=== PATIENT | male | born 1990 | race African-American/Black ===

== ENCOUNTER 2019-07-18 20:12 | Observation (INO) | payer MEDICAID, SELFPAY ==
[2019-07-18 20:15] VITALS: BP 176/116; PULSE 104; RESP 16; TEMP 37.4; O2SAT 96; BMI 23.3
--- NOTE | 2019-07-18 20:31 | ED.RN ---
Addendum entered by Candelario Knox 07/18/19 21:07: correction on phone number [phone] Original Note: brothers phone number [phone]
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
--- NOTE | 2019-07-18 20:37 | EKG12_ITS ---
Test Reason : DYSRHYTHMIA Blood Pressure : / mmHG Vent. Rate : 084 BPM Atrial Rate : 084 BPM P-R Int : 170 ms QRS Dur : 090 ms QT Int : 404 ms P-R-T Axes : 055 067 028 degrees QTc Int : 477 ms Normal sinus rhythm Nonspecific T wave abnormality Prolonged QT Abnormal ECG Confirmed by JAGDISH FORD, KAMRYN ([id number]), city editor SAM YANG ([id number]) on 07/23/2019 3:11:11 PM Referred By: MR Confirmed By:JOAN DUBON MD
[2019-07-18] MEDS: Ziprasidone IM 20 MG/ML VIAL IM (20:49)
[2019-07-18] MEDS: LORazepam 2 MG/ML Syringe 1 MG IV (20:55)
--- NOTE | 2019-07-18 21:13 | ED.RN ---
no old ekgs
[2019-07-18] MEDS: levETIRAcetam IV 1,000 MG/100 ML BAG 400 MG IV (21:16)
[2019-07-18 21:19] LABS: Absolute Lymphocyte Count 1.22 X10^3/uL (0.83-4.51); Absolute Neutrophil Count 6.3 X10^3/uL (2.0-7.7); Basophil# 0.05 X10^3/uL; Basophil% 0.6 % (0-1); Eosinophil# 0.01 X10^3/uL; Eosinophils% 0.1 % (0-5); Hematocrit 40.9 % (40-54); Hemoglobin 12.7 g/dL (13.0-16.5); Lymphocyte # 1.22 X10^3/ul (4.0); Lymphocyte % 14.8 % (19-41); Mean Corp Hgb Conc 31.1 g/dL (32-36); Mean Corpuscular Volume 74.2 fL (80-94); Mean Platelet Vol. 10.5 fl (6.2-12.0); Monocyte# 0.65 X10^3/uL; Monocyte% 7.9 % (0-10); NRBC Flagged by Analyzer 0 % (0-5); Neutrophil # 6.27 X10^3/uL (2.7-7.7); Neutrophil % 76.4 % (47-70); Platelet Count 222 K/mm3 (150-450); RBC Distribution Width CV 14.5 % (11.6-14.6); RBC Distribution Width SD 38.4 fl (35.1-43.9); Red Blood Count 5.51 M/mm3 (4.6-6.2); White Blood Count 8.2 K/mm3 (4.4-11.0)
--- NOTE | 2019-07-18 21:33 | ED.VIS.GEN ---
History of Present Illness Chief Complaint: Mental Health Past Medical History - Allergies and Home Meds Allergies/Adverse Reactions: Allergies No Known Allergies Allergy (Verified 07/18/19 20:21) Primary Care Physician: Care Physician,No Primary [Primary Care Provider] - Smoking Status: Never smoker Physical Exam Vital Signs/Narrative: Vital Signs Temp Pulse Resp BP Pulse Ox 07/18/19 20:15 99.4 F H 104 H 16 176/116 H 96 ED Disposition - Plan for ED Patient: Referrals: Care Physician,No Primary [Primary Care Provider] -
[2019-07-18 21:39] LABS: Alcohol, Blood (Medical)-Serum < 3.0 mg/dL
[2019-07-18 21:44] LABS: AST(SGOT) 25 U/L (15-37); Alanine Aminotransfer ALT/SGPT 24 U/L (16-61); Albumin, Serum 4.4 g/dL (3.2-5.0); Alkaline Phosphatase 45 U/L (45-117); Anion Gap 9 (5-15); BUN 10 mg/dL (7-18); BUN/Creat Ratio 7.7 RATIO (10-20); Calcium,Total 9.7 mg/dL (8.5-10.1); Chloride 103 mmol/L (98-107); EST Glomerular Filtration Rate 75 mL/min (>60); Est Glom Filt Rate - Afr Amer 90 mL/min (>60); Estimated Creatinine Clearance 102.44 ml/min; Globulin 4.3 g/dL (2.2-4.2); Glucose 136 mg/dL (74-106); Potassium 3.1 mmol/L (3.5-5.1); Protein, Total 8.7 g/dL (6.4-8.2); Sodium Level 138 mmol/L (136-145)
--- NOTE | 2019-07-18 21:44 | ED.RN ---
PT AGITATED, RAMBLING NON-SENSICAL SPEECH UPON ARRIVAL. DIFFICULT TO REDIRECT, NOT FOLLOWING DIRECTIONS. POLICE OFFICERS AT BEDSIDE. PT YELLING, STATING DON'T GIVE ME A GUN. PT BECAME MORE AGITATED, OUT OF BED SCREAMING, STRIPPED OFF CLOTHES, CRAWLING ON FLOOR NAKED. PT ASSISTED BACK TO BED, RESTRAINTS APPLIED.
[2019-07-18 21:47] LABS: Lactic Acid 6.3 mmol/L (0.4-1.9)
[2019-07-18 21:55] VITALS: BP 112/66; PULSE 60; RESP 16; O2SAT 97
[2019-07-18 22:00] VITALS: BP 113/64; PULSE 68; RESP 16; O2SAT 98
[2019-07-18] MEDS: 0.9% Normal Saline 1,000 ML 999 ML IV (22:00)
[2019-07-18 22:29] LABS: Bacteria 0 SEEN /hpf (None Seen); Mucous, Urine 0 SEEN /hpf (<or=2+); Red Blood Cells-Urine 0 SEEN /hpf (0-5); Squamous Epithelial Cells - UA 0 SEEN /hpf (0-5); White Blood Cells 0 SEEN /hpf (0-5)
[2019-07-18 22:31] LABS: Color, Urine Straw (Yellow); Glucose, Dipstick Normal (Normal); Ketone-Dipstick 5 mg/dl (Negative); Leukocyte Esterase-Dipstick Negative /ul (Negative); Nitrite-Dipstick Negative (Negative); Occult Blood-Urine Negative /ul (Negative); Protein-Dipstick 30 mg/dl (Negative); Urine Bilirubin Dipstick Negative (Negative); Urine Clarity Clear (Clear); Urine Urobilinogen Normal (Normal)
[2019-07-18 22:43] LABS: Amphetamine Urine VISTA NEGATIVE (<1000 ng/mL); Barbiturate Urine VISTA NEGATIVE (< 200 ng/mL); Benzodiazepine Urine VISTA NEGATIVE (< 200 ng/mL); Cocaine Urine VISTA NEGATIVE (< 300 ng/mL); Ecstacy Urine VISTA NEGATIVE (< 500 ng/mL); Methadone Urine VISTA NEGATIVE (< 300 ng/mL); PCP Urine VISTA NEGATIVE (< 25 ng/mL); THC Urine VISTA POSITIVE (< 50 ng/mL); Vista UDS pH Range 6
[2019-07-18 23:00] VITALS: BP 143/107; PULSE 64; RESP 16; O2SAT 96
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
--- NOTE | 2019-07-18 23:33 | ED.RN ---
ALSO ABRASION NOTED TO RIGHT HIP.
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
[2019-07-19] VITALS (11 sets, daily range): BP systolic 121–159; BP diastolic 82–103; PULSE 58–99; RESP 15–26; TEMP 36.1–37.7; O2SAT 96–100; BMI 22.0
[2019-07-19 01:16] LABS: Reflex Lactate? Y
[2019-07-19] MEDS: 0.9% Saline Lock 10 ML Syringe IV (02:36)
[2019-07-19] MEDS: 0.9% Normal Saline 1,000 ML 150 ML IV (02:36)
[2019-07-19 03:51] LABS: Anion Gap 7 (5-15); BUN 8 mg/dL (7-18); BUN/Creat Ratio 9.1 RATIO (10-20); Chloride 104 mmol/L (98-107); Creatinine, Serum 0.88 mg/dL (0.70-1.30); EST Glomerular Filtration Rate 110 mL/min (>60); Est Glom Filt Rate - Afr Amer 133 mL/min (>60); Estimated Creatinine Clearance 133.99 ml/min; Glucose 83 mg/dL (74-106); Magnesium 2.2 mg/dL (1.6-2.6); Potassium 3.7 mmol/L (3.5-5.1); Sodium Level 138 mmol/L (136-145)
[2019-07-19 04:00] LABS: Lactic Acid 0.8 mmol/L (0.4-1.9)
[2019-07-19] MEDS: Acetaminophen 325 MG Tablet 650 MG PO (05:26)
--- NOTE | 2019-07-19 06:48 | NURSING ---
Pt states okay to give his mother information. Per pt, her name is Ann Childress and her phone number is [phone].
--- NOTE | 2019-07-19 09:00 | PCM.PN.BLA ---
Progress Note Pt seen and examined. He is nonviolent. He is medically stable for evaluation by crisis team. Shawn Adkins PA-C STROKE Vital Signs/Narrative: Vital Signs Temp Pulse Resp BP Pulse Ox 07/19/19 08:00 99.6 F H 68 18 159/96 H 97 07/19/19 07:35 99 07/19/19 06:28 99.8 F H 99 25 H 145/85 H 99 07/19/19 05:12 99.3 F H 63 26 H 156/95 H 100
[2019-07-19] MEDS: levETIRAcetam Oral Solution 500 MG/5 ML 1000 MG PO (10:24)
--- NOTE | 2019-07-19 10:29 | DCINST_ITS ---
- Discharge Diagnoses Current Active Problems: Current Active and Chronic Problems (Last Updated 07/18/19 @ 23:[address] Leonidas Abraham, DO) Seizure (Acute) You will use the following diet at home:: No restrictions Your food should be the consistency of: Regular Your liquids should be the consistency of: Regular/Thin Discharge Activity: Return to Normal Activity Allergies/Adverse Reactions: Allergies No Known Allergies Allergy (Verified 07/18/19 20:21) Medications to take at Discharge Levetiracetam [Keppra] 1,000 mg PO BID #60 tab 07/19/19 The following prescriptions were given: Levetiracetam [Keppra] 1,000 mg PO BID #60 tab Prescription Printed Primary Care Physician: Care Physician,No Primary [Primary Care Provider] - Please follow up with your Primary Care Physician in: 1-2 weeks Test Results: Test results from this visit will be discussed in further detail at your follow- up appointment, if applicable. Please Follow Up With: Neurology When: 2-3 weeks Proposed Discharge Date: 07/19/19
--- NOTE | 2019-07-19 10:38 | PHA.DC.MR ---
Pharmacy Service has performed discharge medication reconciliation for this patient. The patient's discharge medication list was reviewed for discrepancies and discrepancies were resolved. Home Medications Levetiracetam [Keppra] 1,000 mg PO BID #60 tab 07/19/19
--- NOTE | 2019-07-19 10:53 | CASEMGMT ---
SW spoke with patient and he has [facility] Medicaid. However, out of state Medicaid is not active in [place]. SW utilized [facility] prescription assistance program for patient. Phoebe ARNOLD MSW
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
== END 2019-07-19 10:30 | disposition home or self-care (01) ==
LOC: ED 22:15 → PCU 07-19 00:30
PROVIDERS: Emergency Provider Emergency Medicine; Visit Provider Internal Medicine
DX: G40.909 Epilepsy, unspecified, not intractable, without status epilepticus (principal); Z79.899 Other long term (current) drug therapy; F17.200 Nicotine dependence, unspecified, uncomplicated
CPT/HCPCS: 36415; 70450; 80048; 80076; 80307; 80320; 81001; 83605; 83735; 84443; 85025; 93005; 96361; 96365; 96372; 96375; 97802; 99218; 99285; J7030; A4216; G0378; G0480; J3486